=== PATIENT | female | born 1985 | race Caucasian/White ===

== ENCOUNTER 2018-07-09 06:00 | Inpatient (IN) | payer OTHER ==
--- NOTE | 2018-07-09 08:50 | PDOC.LDHP ---
Labor and Delivery H&P Chief complaint: scheduled induction HPI: Pt is a 33yo @ 40.1 weeks here for elective IOL. Current gestational age (weeks): 40 Due date: 07/08/18 Dating criteria: last menstrual period Grav: 2 Para: 1 OB History Details: x 1 Current complications: none Abnormal US findings: No Current medications: pre-lyle vitamins Previous surgical history: none Social history: none - Physical Exam Vital signs reviewed and normal: yes Lungs: CTAB Abdomen: gravid Extremeties: no edema FHT: category 1 - OB Labs Blood type: A RH: negative Antibody Screen: negative HIV: negative RPR: negative HEPSAg: negative 1 hour GCT: negative GBS: negative Rubella: non-immune - Assessment L&D Assessment: elective induction at term - Plan Plan: admit to L&D, cervical ripening, labor augmentation if indicated, informed consent obtained, anesthesia consult for pain management -: A/P: 33yo @ 40.1 weeks here for elective IOL. Plan for pitocin and AROM if indicated.
[2018-07-09] MEDS: Lactated Ringer's 1,000 ML IV SCH ×3 (09:20→20:22)
[2018-07-09] MEDS ORDERED: Promethazine HCl 25 MG/ML VIAL IM PRN ×2 (09:35→20:55)
[2018-07-09] MEDS ORDERED: Lidocaine 1% (PF) 30 ML VIAL SC PRN (09:35)
[2018-07-09] MEDS ORDERED: Ibuprofen 800 MG TAB PO PRN (09:35)
[2018-07-09] MEDS ORDERED: NS w/ Oxytocin 10 units 500 ML IV SCH ×2 (09:35)
[2018-07-09] MEDS ORDERED: Ondansetron PF 4 MG/2 ML Vial IVP PRN ×2 (09:35→20:55)
[2018-07-09] MEDS ORDERED: HYDROcodone/Acetaminophen 5/325 mg Tablet PO PRN ×2 (09:35)
[2018-07-09] MEDS ORDERED: NS w/ Oxytocin 10 units 500 ML ONE (09:46)
[2018-07-09 09:58] VITALS: BMI 37.0
[2018-07-09 09:58] LABS: Hemoglobin 13.1 g/dL (12.0-16.0); Mean Corpuscular HGB CONC 33.7 g/dL (32.0-36.0); Mean Corpuscular Hemoglobin 30.4 pg (27.0-31.0); Mean Corpuscular Volume 90.2 fL (78.0-98.0); Mean Platelet Volume 10.8 fL (7.4-10.4); Platelet Count 175 thou/uL (130-400); White Blood Cell (WBC) Count 8.1 thou/uL (4.8-10.8)
[2018-07-09 11:07] LABS: HBSAg Index 0.17 S/CO (0-0.99); Hep B Surf Ag Non-Reactive S/CO (NonReactive)
[2018-07-09] MEDS ORDERED: Bupivacaine/Epinephrine 0.25% 30 ML VIAL ONE (15:00)
--- NOTE | 2018-07-09 16:29 | PDOC.LDPN ---
Labor & Delivery Progress Note - Subjective Subjective: comfortable - Objective Vital signs reviewed and normal: yes General: resting Dilation: 3 Effacement: 25% Station: -2 FHT: category 1 AROM: clear fluid - Assessment (1) 40 weeks gestation of Code(s): Z3A.40 - 40 WEEKS GESTATION OF Current Visit: Yes Status : Acute Plan: continue plan of care -: A/P: Pt is here for IOL, slow progress to this point w AROM 1300 and pitocin since 0900. Anticipate transition to active labor soon. FHT reassuring.
[2018-07-09] MEDS ORDERED: Butorphanol Tartrate 1 MG/ML VIAL ONE (17:25)
[2018-07-09] MEDS ORDERED: Fentanyl 4 mcg/Bup 0.1% Cadd 0 ML ONE (19:06)
[2018-07-09] MEDS ORDERED: Fentanyl 4 mcg/Bup 0.1% Cadd 100 ML ONE (19:09)
[2018-07-09] MEDS ORDERED: Naloxone HCl 0.4 mg/ml Vial IVP PRN ×2 (20:55)
[2018-07-09] MEDS ORDERED: Hydrocerin (Eucerin) Cream 120 gm Jar TOP PRN (20:55)
[2018-07-09] MEDS ORDERED: Acetaminophen 325 MG TAB PO PRN (20:55)
[2018-07-09] MEDS ORDERED: diphenhydrAMINE 50 MG/ML VIAL IVP PRN (20:55)
[2018-07-09] MEDS ORDERED: Lactated Ringer's 500 ML IV PRN (20:55)
[2018-07-09] MEDS ORDERED: ePHEDrine/0.9% NaCl/PF SYRINGE 50 mg/10 ml SLOW IVP PRN (20:55)
[2018-07-09] MEDS ORDERED: Communication Order-Pharmacy FS SCH (21:00)
[2018-07-09] MEDS ORDERED: Fentanyl 4 mcg/Bupivacaine 0.1% Cassette 100 ML EPIDURAL SCH (21:00)
[2018-07-10] MEDS: NS / Oxytocin 40 units/1000ml 1,000 ML IV PRN ×3 (01:19→03:26)
--- NOTE | 2018-07-10 01:32 | PDOC.OPDEL ---
OB Operative/Delivery Note Delivery Dr/Surgeon: Brodie Pre-Delivery Diagnosis: elective induction Procedure/Post Delivery Dx: spontaneous vaginal delivery Weeks gestation: 40 Anesthesia: epidural - Findings A Sex: male - Additional Findings/Plan Placenta delivered: spontaneous Repaired Obstetrical Laceration: left labial Estimated blood loss: 400ml Post delivery plan: routine recovery
[2018-07-10] MEDS ORDERED: Benzocaine/Menthol 20-0.5% 60 ML CAN TOP PRN (04:14)
[2018-07-10] MEDS ORDERED: Milk Of Magnesia 30 ML UDCUP PO PRN (04:14)
[2018-07-10] MEDS ORDERED: Preparation H Ointment 28 GM TUBE PR PRN (04:14)
[2018-07-10] MEDS ORDERED: Bisacodyl 10 MG SUPP PR PRN (04:14)
[2018-07-10] MEDS ORDERED: HYDROcodone/Acetaminophen 5/325 mg Tablet PO PRN ×2 (04:14)
[2018-07-10] MEDS ORDERED: diphenhydrAMINE 25 MG CAP PO PRN (04:14)
[2018-07-10] MEDS ORDERED: Ondansetron PF 4 MG/2 ML Vial IVP PRN (04:14)
[2018-07-10] MEDS ORDERED: NS / Oxytocin 40 units/1000ml 1,000 ML IV SCH (04:14)
[2018-07-10] MEDS ORDERED: Lanolin Ointment 7 GM TUBE TOP PRN (04:14)
[2018-07-10] MEDS: Ferrous Sulfate 325 MG TAB PO SCH ×2 (08:49→14:09)
[2018-07-10] MEDS ORDERED: Measles/Mumps/Rubella 10 MCG/0.5 ML VIAL SC ONE (09:00)
[2018-07-10] MEDS ORDERED: Adacel (T-DAP) 0.5 ML SYRINGE IM ONE (09:00)
[2018-07-10] MEDS: Prenatal Vitamin 1 TAB PO SCH (09:20)
[2018-07-10] MEDS: Docusate Calcium (SURFAK) 240 MG CAP PO SCH ×2 (09:20→20:55)
[2018-07-10] MEDS: Ibuprofen 800 MG TAB PO SCH ×2 (14:07→20:56)
[2018-07-10 19:49] LABS: Syphilis Antibody Nonreactive (Nonreactive); Syphilis Antibody Index 0.04 S/CO (<1.00 Non-Reactive)
[2018-07-11] MEDS: Ibuprofen 800 MG TAB PO SCH ×3 (06:12→21:04)
[2018-07-11] MEDS: Docusate Calcium (SURFAK) 240 MG CAP PO SCH ×2 (09:08→21:04)
[2018-07-11] MEDS: Ferrous Sulfate 325 MG TAB PO SCH ×2 (09:08→15:24)
[2018-07-11] MEDS: Prenatal Vitamin 1 TAB PO SCH (09:08)
--- NOTE | 2018-07-11 13:05 | PDOC.PP ---
Post Progress Note Post Day #: 1 Subjective: doing well, nursing well PO intake tolerated: yes Flatus: yes Ambulation: yes Vital Signs (12 hours) Temp Pulse Resp BP Pulse Ox 07/11/18 07:57 98.2 F 68 20 111/64 98 Weight Weight 223 lb - Physical Examination General: NAD Respiratory: non-labored breathing Abdominal: no distention Fundus firm & at: below umb Skin: no rash Psychiatric: A&Ox3, normal affect Result Diagrams: 07/09/18 09:39 Additional Labs: Post Labs Blood Type A NEGATIVE 07/09/18 09:39 Hep Bs Antigen Non-Reactive S/CO (NonReactive) 07/09/18 09:39 (1) 40 weeks gestation of Code(s): Z3A.40 - 40 WEEKS GESTATION OF Status: Acute (2) Vaginal delivery Code(s): O80 - ENCOUNTER FOR FULL-TERM UNCOMPLICATED DELIVERY Status: Acute - Assessment/Plan PPD 1 doing well, plan for DC when baby DC.
--- NOTE | 2018-07-12 03:25 | PDOC.PP ---
Post Progress Note Post Day #: PPD#2 Subjective: Doing well. PO intake tolerated: yes Flatus: yes Ambulation: yes Vital Signs (12 hours) Temp Pulse Resp BP Pulse Ox 07/11/18 19:50 98.0 F 69 20 112/66 98 Weight Weight 101.151 kg - Physical Examination General: NAD Respiratory: non-labored breathing Neurological: no gross focal deficits Psychiatric: normal affect Result Diagrams: 07/09/18 09:39 Additional Labs: Post Labs Blood Type A NEGATIVE 07/09/18 09:39 Hep Bs Antigen Non-Reactive S/CO (NonReactive) 07/09/18 09:39 - Assessment/Plan DC home. Precautions. RTC 6 weeks. Rhogam given.
[2018-07-12] MEDS: Ibuprofen 800 MG TAB PO SCH (06:19)
[2018-07-12 08:10] VITALS: BP 116/72; TEMP 97.8
[2018-07-12] MEDS: Prenatal Vitamin 1 TAB PO SCH (08:41)
[2018-07-12] MEDS: Ferrous Sulfate 325 MG TAB PO SCH (08:41)
[2018-07-12] MEDS: Docusate Calcium (SURFAK) 240 MG CAP PO SCH (08:41)
== END 2018-07-12 14:05 | disposition home or self-care (01) | DRG 807 ==
LOC: L&D 08:30 → 3SE 07-10 05:02
PROVIDERS: ADMIT Obstetrics & Gynecology; ATTEND Obstetrics & Gynecology
PROC: 3E033VJ Introduction of Other Hormone into Peripheral Vein, Percutaneous Approach (ICD-10-PCS; 2018-07-09)
PROC: 10907ZC Drainage of Amniotic Fluid, Therapeutic from Products of Conception, Via Natural or Artificial Opening (ICD-10-PCS; 2018-07-09)
PROC: 10E0XZZ Delivery of Products of Conception, External Approach (ICD-10-PCS; principal; 2018-07-10)
PROC: 0HQ9XZZ Repair Perineum Skin, External Approach (ICD-10-PCS; 2018-07-10)
DX: O70.0 First degree perineal laceration during delivery (principal); Z37.0 Single live birth; Z3A.40 40 weeks gestation of pregnancy
CPT/HCPCS: 51702; 85027; 85461; 86780; 86850; 86900; 86901; 87340; 90384; 96372; J0595; J1200; J2001

== ENCOUNTER 2022-11-20 09:25 | Outpatient (CLI) | payer BC | END 2022-11-20 09:26 | disposition home or self-care (01) | LOC: TBSIIMAG 09:25 | PROVIDERS: ATTEND Nurse Practitioner Family | DX: R16.0 Hepatomegaly, not elsewhere classified (principal) | CPT/HCPCS: 74183 ==

== ENCOUNTER 2024-02-05 09:57 | Outpatient (CLI) | payer BC | END 2024-02-05 09:58 | disposition home or self-care (01) | LOC: MRI 09:57 | PROVIDERS: ATTEND Physician Assistant Medical | DX: K76.89 Other specified diseases of liver (principal); R16.0 Hepatomegaly, not elsewhere classified | CPT/HCPCS: 74183 ==